=== PATIENT | male | born 1995 | race Caucasian/White ===

== ENCOUNTER 2019-12-09 07:56 | Emergency (ER) | payer OTHER ==
[~2019-12-09] VITALS: Ht 185.4 cm; Wt 110.5 kg
--- NOTE | 2019-12-09 08:58 | REP ---
REASON: Trauma. COMPARISON: No priors. FINDINGS: No acute fracture or destructive osseous lesion. The mortise is intact. Electronically Signed by Quentin Ríos DO 12/09/2019 01:21 P
[2019-12-09 09:19] VITALS: BP 154/93
== END 2019-12-09 09:20 | disposition home or self-care (01) ==
LOC: M ED 07:56
DX: S93.492A Sprain of other ligament of left ankle, initial encounter (principal); X50.9XXA Other and unspecified overexertion or strenuous movements or postures, initial encounter; Y92.89 Other specified places as the place of occurrence of the external cause; Y99.0 Civilian activity done for income or pay

== ENCOUNTER 2020-06-07 17:57 | Emergency (ER) | payer BC, OTHER, SELFPAY ==
[~2020-06-07] VITALS: Ht 188 cm; Wt 118.2 kg
[2020-06-07] MEDS ORDERED: KETOROLAC 60MG 2ML VIAL IM ONE (18:45)
[2020-06-07] MEDS: ALBUTEROL 90 MCG/ACT 8GM HFA INHALER INH SCH ×3 (18:45→19:25)
--- NOTE | 2020-06-07 19:46 | REP ---
INDICATION: SOB, body aches COMPARISON: None. TECHNIQUE: Portable AP view of the chest FINDINGS: The mediastinum and cardiac silhouette are within normal limits for portable technique. The lung ornelas are clear without acute consolidation, effusion, or pneumothorax. Skeletal structures are intact. IMPRESSION: No acute cardiopulmonary process appreciated. <Electronically signed by Burt Causey > 06/07/201941
[2020-06-07] MEDS ORDERED: NAPR-837 PO (20:43)
[2020-06-07] MEDS ORDERED: PROAAER10 INH (20:43)
[2020-06-07 20:45] VITALS: BP 133/79
== END 2020-06-07 21:00 | disposition home or self-care (01) ==
LOC: M ED 17:57
DX: R06.02 Shortness of breath (principal); R52 Pain, unspecified; Z20.828 Contact with and (suspected) exposure to other viral communicable diseases
CPT/HCPCS: 71045; 99283; J1885; U0003

== ENCOUNTER 2023-12-11 10:28 | Emergency (ER) | payer BC, SELFPAY ==
[~2023-12-11] VITALS: Ht 185.4 cm; Wt 123.3 kg
[~2023-12-11 10:28] MED LIST: NAPR-837 PO; PROAAER10 INH
[2023-12-11] MEDS ORDERED: AMPH1CAP5 (10:47)
[2023-12-11 12:23] LABS: BASO % 0.5 % (0.0-1.0); EOS # 0.2 10^3/uL (0.0-0.5); HEMATOCRIT 46.2 % (42.0-52.0); HEMOGLOBIN 16.4 g/dl (13.5-17.5); LYMPH # 1.6 10^3/uL (1.5-5.0); LYMPH % 21.4 % (24.0-44.0); MEAN CORPUSCULAR HEMOGLOBIN 32.3 pg (27.0-33.0); MEAN CORPUSCULAR HGB CONC 35.5 g/dl (32.0-36.5); MEAN CORPUSCULAR VOLUME 90.9 fl (80.0-96.0); MONO # 0.7 10^3/uL (0.0-0.8); MONO % 9.4 % (2.0-8.0); NEUTROPHILS # 5.1 10^3/uL (1.5-8.5); NEUTROPHILS % 66.4 % (36.0-66.0); PLATELET COUNT, AUTOMATED 278 10^3/uL (150-450); RED BLOOD COUNT 5.08 10^6/uL (4.30-6.10); WHITE BLOOD COUNT 7.7 10^3/uL (4.0-10.0)
[2023-12-11 12:45] VITALS: BP 138/80; TEMP 98; O2SAT 97
[2023-12-11 12:54] LABS: LIPASE 37 U/L (12-53)
[2023-12-11 12:56] LABS: ALBUMIN 4.1 G/DL (3.2-5.2); ALKALINE PHOSPHATASE 56 U/L (46-116); ALT/SGPT 64 U/L (7.0-40); AST/SGOT 40 U/L (<34); BILIRUBIN,DIRECT 0.2 MG/DL (<0.4); BILIRUBIN,TOTAL 0.5 MG/DL (0.3-1.2); BLOOD UREA NITROGEN 11 MG/DL (9-23); CALCIUM LEVEL 9.3 MG/DL (8.5-10.1); CARBON DIOXIDE LEVEL 23 MMOL/L (20-31); CHLORIDE LEVEL 106 MMOL/L (98-107); CREATININE FOR GFR 0.82 MG/DL (0.70-1.30); GLOMERULAR FILTRATION RATE > 60.0 (>60); GLUCOSE, FASTING 102 MG/DL (60-100); POTASSIUM SERUM 4.3 MMOL/L (3.5-5.1); SODIUM LEVEL 138 MMOL/L (136-145); TOTAL PROTEIN 6.9 G/DL (5.7-8.2)
[2023-12-11 13:02] LABS: APPEARANCE, URINE CLEAR (CLEAR); BACTERIA, URINE AUTO NEGATIVE (NEGATIVE); BILIRUBIN, URINE AUTO NEGATIVE (NEGATIVE); BLOOD, URINE BLOOD NEGATIVE (NEGATIVE); COLOR, URINE YELLOW (YELLOW); GLUCOSE, URINE (UA) AUTO NEGATIVE (NEGATIVE); KETONE, URINE AUTO NEGATIVE (NEGATIVE); LEUKOCYTE ESTERASE, URINE AUTO NEGATIVE (NEGATIVE); MUCUS, URINE SMALL (NEGATIVE); NITRITE, URINE AUTO NEGATIVE (NEGATIVE); PROTEIN, URINE AUTO NEGATIVE (NEGATIVE); RBC, URINE AUTO 1 /HPF (0-3); SPECIFIC GRAVITY URINE AUTO 1.017 (1.002-1.035); SQUAMOUS EPITHELIAL CELL UR AU 0 /HPF (0-6); UROBILINOGEN, URINE AUTO 0.2 mg/dL (0.0-2.0); WBC, URINE AUTO 3 /HPF (0-3)
== END 2023-12-11 13:56 | disposition home or self-care (01) ==
LOC: M ED 10:28
DX: S39.011A Strain of muscle, fascia and tendon of abdomen, initial encounter (principal); Y92.9 Unspecified place or not applicable; Y93.9 Activity, unspecified; Y99.9 Unspecified external cause status; F90.9 Attention-deficit hyperactivity disorder, unspecified type; F10.10 Alcohol abuse, uncomplicated; Z79.899 Other long term (current) drug therapy

== ENCOUNTER → 2024-09-12 | Outpatient (CLI) | payer BC ==
[~2024-09-12] MED LIST changes: +AMPH1CAP5
== END ==
LOC: M RAD 10:18
PROVIDERS: ATTEND Physician Assistant
DX: R74.01 Elevation of levels of liver transaminase levels (principal)